=== PATIENT | female | born 1985 | race Caucasian/White ===

== ENCOUNTER 2017-08-14 10:27 | Emergency (ER) | payer OTHER ==
[~2017-08-14] VITALS: Ht 167.6 cm; Wt 93.2 kg
[2017-08-14 12:33] VITALS: BP 131/70
== END 2017-08-14 12:33 | disposition home or self-care (01) ==
LOC: ED 10:27
DX: O26.891 Other specified pregnancy related conditions, first trimester (principal); M79.672 Pain in left foot; R68.84 Jaw pain; Z3A.00 Weeks of gestation of pregnancy not specified

== ENCOUNTER 2017-12-15 18:15 | Emergency (ER) | payer OTHER ==
[~2017-12-15] VITALS: Ht 162.6 cm; Wt 97.5 kg
[2017-12-15 18:32] VITALS: Ht 162.6 cm; Wt 97.5 kg
[2017-12-15 21:45] LABS: BASOPHIL % 0.3 % (0-2); PLATELET COUNT 246 x10^3mcL (130-400); RED CELL DISTRIBUTION WIDTH 13.9 % (11.5-14.5)
[2017-12-15 21:50] LABS: CALCIUM 8.3 mg/dL (8.5-10.1); CARBON DIOXIDE 26.2 mmol/L (21-32); CHLORIDE SERUM 102 mmol/L (98-107); CREATININE SERUM 0.5 mg/dL (0.6-1.0); GFR1 > 60 mL/min; GLUCOSE SERUM 83 mg/dL (74-106); POTASSIUM SERUM 3.2 mmol/L (3.5-5.1); SODIUM SERUM 137 mmol/L (136-145)
[2017-12-15 21:56] LABS: ALKALINE PHOSPHATASE 59 U/L (46-116); ALT/SGPT 46 U/L (14-59); AMYLASE 53 U/L (25-115); AST/SGOT 32 U/L (15-37); BILIRUBIN TOTAL 0.25 mg/dL (0.20-1.00); LIPASE 126 IU/L (73-393); TOTAL PROTEIN, SERUM 6.5 g/dL (6.4-8.2)
[2017-12-15 21:58] LABS: ALBUMIN 2.6 g/dL (3.4-5.0)
[2017-12-15 23:18] VITALS: BP 127/82
== END 2017-12-15 23:18 | disposition home or self-care (01) ==
LOC: ED 18:15
PROVIDERS: Emergency Medicine
DX: O99.613 Diseases of the digestive system complicating pregnancy, third trimester (principal); K92.89 Other specified diseases of the digestive system; A08.4 Viral intestinal infection, unspecified
CPT/HCPCS: 83880; J2405; J2765; J7030